=== PATIENT | male | born 1995 | race African-American/Black ===

== ENCOUNTER 2016-11-30 08:32 | Emergency (ER) | payer OTHER ==
[~2016-11-30] VITALS: Ht 172.7 cm; Wt 68.0 kg
--- NOTE | 2016-11-30 08:39 | Emergency Room Report ---
History of Present Illness General Chief Complaint: To Be Triaged Source: Patient Present Illness HPI Patient twisted his ankle a week ago Wednesday playing basketball. He was seen in another emergency room at that time. Had x-rays and posterior splint which he did not tolerate. He's here to get rechecked. He's been taking Motrin. The last dose was last night. Pain worse when standing (which his job requires). Pain 8/10, aching and sharp. Some radiation to calf area. No fevers, dyspnea, hemoptysis, rashes. Had prior injury to ankle. Denies fx, but states they told him he had previously fractured the ankle. Allergies: Coded Allergies: No Known Allergies (Unverified , 11/30/16) Patient History Past Medical History: see triage record Social History: Denies: smoking Social History Narrative working retail Reviewed Nursing Documentation: PMH: Agreed, PSxH: Agreed Review of Systems All Other Systems: negative except mentioned in HPI Physical Exam Vital Signs Date Time Temp Pulse Resp B/P Pulse Ox O2 Delivery O2 Flow Rate FiO2 11/30/16 08:37 97.3 57 14 137/74 96 Room Air Sp02 EP Interpretation: reviewed, normal General Appearance: well appearing, no apparent distress, GCS 15 Head: normocephalic, atraumatic Eyes: bilateral eye PERRL, bilateral eye normal inspection ENT: hearing grossly normal, normal voice, moist mucus membranes Neck: full range of motion, supple Respiratory: no respiratory distress, speaking full sentences Musculoskeletal: back normal, no calf tenderness, swelling - lateral maleolus with point tenderness and some lateral ligament laxity. No 5th MT tenderness. Neurologic: alert, oriented x3, motor strength/tone normal, sensory intact, normal gait - with crutches - not weight bear on L Psychiatric: mood/affect normal Skin: no rash Medical Decision Making Diagnostic Impression: Primary Impression: Left ankle sprain Qualified Codes: S93.412D - Sprain of calcaneofibular ligament of left ankle, subsequent encounter ER Course Patient 1 week post ankle injury. Ddx; sprain, strain, fx. Xrays indicated. Will treat with mortin. Xrays with lateral lig laxity, but no acute fx (old medial malleolus fx). Air cast applied by tech. Position excellent. Neurovasc normal as checked by me. Patient stable for outpatient observation and treatment. Other X-Ray Diagnostic Results Other X-Ray Diagnostic Results : # of Views/Limited Vs Complete: 3 View Indication: Pain EP Interpretation: Yes Interpretation: no dislocation, no fractures - acute - old medial fx, other - inc distance lat malleolus Impression: Other Interpreting ER Provider: Electronically signed Phillip Dominguez MD Last Vital Signs Date Time Temp Pulse Resp B/P Pulse Ox O2 Delivery O2 Flow Rate FiO2 11/30/16 10:15 69 16 135/70 100 Room Air 11/30/16 09:46 97.8 Status: improved Disposition: HOME, SELF-CARE Condition: Improved Scripts Tramadol Hcl* (ULTRAM*) 50 Mg Tablet 50 MG ORAL Q6H Y for For Pain, #12 TAB 0 Refills Prov: Phillip Dominguez M.D. 11/30/16 Ibuprofen* (MOTRIN*) 600 Mg Tablet 600 MG ORAL Q6H Y for For Pain, #20 TAB Prov: Phillip Dominguez M.D. 11/30/16 Phillip Dominguez M.D. Nov 30, 2016 08:39
[2016-11-30] MEDS ORDERED: TRAMADOL HCL50 MG ORAL (09:59)
[2016-11-30] MEDS ORDERED: IBUPROFEN600 MG ORAL (09:59)
[2016-11-30 10:15] VITALS: BP 135/70
--- NOTE | 2016-11-30 12:32 | Diagnostic Imaging Report ---
Indication: TRAUMA Technique: 3 views of the left ankle Comparison: none Findings: There is slight soft tissue swelling over the lateral malleolus. No acute fractures. No dislocations. The joint spaces are preserved. There is mild pes planus deformity Impression: No acute process Evidence of lateral soft tissue injury This agrees with the preliminary interpretation provided by the emergency room physician
== END 2016-11-30 10:07 | disposition home or self-care (01) ==
LOC: EMR 08:47
DX: S93.412D Sprain of calcaneofibular ligament of left ankle, subsequent encounter (principal); X58.XXXD Exposure to other specified factors, subsequent encounter
CPT/HCPCS: 29530; 99284